=== PATIENT | female | born 1970 | race Two or more races ===

== ENCOUNTER 2021-08-12 03:40 | Emergency (ER) | payer OTHER ==
[~2021-08-12] VITALS: Ht 165.1 cm; Wt 81.6 kg
[2021-08-12] MEDS ORDERED: PREVACID30 MG PO (12:00)
[2021-08-12] MEDS ORDERED: LEVSIN/SL0.125 MG PO (12:00)
[2021-08-12] MEDS ORDERED: PEPCID AC20 MG PO (12:00)
== END 2021-08-12 12:09 ==
LOC: ER 03:40
DX: R10.9 Unspecified abdominal pain (principal); R07.89 Other chest pain; K29.60 Other gastritis without bleeding